=== PATIENT | male | born 1970 | race Caucasian/White ===

== ENCOUNTER 2016-07-21 22:01 | Emergency (ER) | payer OTHER ==
[2016-07-21 22:04] VITALS: BP 145/80; PULSE 103; RESP 18; TEMP 97.7; O2SAT 93
[2016-07-21] MEDS ORDERED: FLUORESCEIN SODIUM 1 MG STRIP OP ONE (22:20)
[2016-07-21] MEDS ORDERED: PROPARACAINE 0.5% 15 ML OPHT DROP OP ONE (22:20)
--- NOTE | 2016-07-21 22:43 | EDPHY ---
H & P Time Seen by Provider: 07/21/16 22:20 HPI/ROS: CHIEF COMPLAINT: " My contact lenses is stuck" HISTORY OF PRESENT ILLNESS: 45-year-old male arrives via private vehicle complaining as left contact lenses stuck. He was unable to have remove it and the peace officer at the [employer] were unable to remove it also. Denies exposure to high speed projectiles. Denies visual acuity changes PHYSICAL EXAM (Prior to examination, patient consented to physical exam, hands were washed and my usual and customary physical exam procedures followed) 1) GENERAL: Well-developed, well-nourished, alert and oriented. Appears to be in no acute distress. 2) HEAD: Normocephalic. Left eye is injected and I am able to visualize a portion of the contact lens which appears to be in the superior aspect of the orbit. 3) HEENT: sclera anicteric 4) LUNGS: Breathing comfortably. Smoking Status: Never smoked Constitutional: Initial Vital Signs Temperature (C) 36.5 C 07/21/16 22:02 Heart Rate 103 H 07/21/16 22:02 Respiratory Rate 18 07/21/16 22:02 Blood Pressure 145/80 H 07/21/16 22:02 O2 Sat (%) 93 07/21/16 22:02 O2 Delivery Mode Room Air Allergies/Adverse Reactions: No Known Allergies Allergy (Unverified 07/21/16 22:04) Home Medications: Medication Instructions Recorded NK [No Known Home Meds] 07/21/16 MDM/Departure - [facility] ED Course/Re-evaluation: 10:20 p.m.: I have initially evaluated the patient, will perform further evaluation with fluorosceine, Alcaine and slit-lamp. 10:40 p.m.: Informed by ER staff that the patient had walked out emergency department apparently after his contact has spontaneously fallen out. I did not perform slit-lamp examination, floor seen staining on this patient as he left prior to me being able to perform this - Depart Disposition: Against Medical Advice Clinical Impression: Contact lens stuck Referrals: [facility] [Other] - As per Instructions
== END 2016-07-21 22:35 | disposition left against medical advice (07) ==
DX: H18.822 Corneal disorder due to contact lens, left eye (principal)